=== PATIENT | female | born 1935 | race American Indian/Alaskan Native ===

== ENCOUNTER 2018-09-11 06:59 | Inpatient (IN) | payer MEDICARE ==
[2018-09-11] MEDS ORDERED: NACL 0.9% 1000 ML 1,000 ML IV ONE (08:09)
--- NOTE | 2018-09-11 08:47 | XRay Report ---
PROCEDURE: XR CHEST 1V AP TECHNIQUE: Chest radiograph single view. HISTORY: hypertension COMPARISONS: None . FINDINGS: Mild patient rotation. No mediastinal shift. Enlarged cardiac silhouette. Aortic wall calcification a nd tortuosity. No pneumothorax. Diffuse interstitial prominence. Cardiac silhouette obscures the left costophrenic angle. No right pleural effusion. IMPRESSION: Cardiac silhouette enlargement could be due to a pericardial effusion or chamber enlargement/cardiome john. Consider echocardiogram or CT is warranted for additional evaluation. This document is electronically signed by Scott Jaramillo MD., September 11 2018 08:44:42 AM ET
[2018-09-11 09:44] LABS: Eosinophils % (Auto) 0.9 % (0.0-4.3); Hematocrit 41.8 % (30.3-42.9); Hemoglobin 13.3 gm/dl (10.1-14.3); Lymphocytes # (Auto) 0.4 K/mm3 (1.2-5.4); Lymphocytes % (Auto) 7.9 % (13.4-35.0); Mean Corpuscular HGB Conc 32 % (30-34); Mean Corpuscular Volume 85 fl (79-97); Monocytes # (Auto) 0.6 K/mm3 (0.0-0.8); Monocytes % (Auto) 12.7 % (0.0-7.3); Platelet Count 192 K/mm3 (140-440); Red Blood Count 4.95 M/mm3 (3.65-5.03); Red Cell Distribution Width 23.4 % (13.2-15.2)
[2018-09-11 09:56] LABS: INR 2.06 (0.87-1.13); Partial Thromboplastin Time 31.5 Sec. (24.2-36.6)
[2018-09-11 10:04] LABS: Creatine Kinase MB 6.2 ng/mL (0.0-4.0)
[2018-09-11 10:29] LABS: Calcium 10.2 mg/dL (8.4-10.2)
[2018-09-11] MEDS ORDERED: LASIX IV ONE (11:19)
--- NOTE | 2018-09-11 11:19 | Emergency Department Report ---
ED General Adult HPI - General Chief complaint: Altered Mental Status Stated complaint: AMS Time Seen by Provider: 09/11/18 07:14 Source: EMS Mode of arrival: Stretcher Limitations: Altered Mental Status - History of Present Illness Initial comments: This is a 83-year-old female brought in by EMS call being for altered mental status. They state that they have run on this patient more than one time this week. They found her sitting in a doorway off her oxygen. She stated that she did not fall. She is oxygen dependent at home. She is apparently not been to this facility in the recent past as there is no [facility] record. Paramedics state that the family calls finding the patient on the floor without her oxygen and that she will not keep it on. The patient herself is tolerating her oxygen well now. She is not complaining of a specific problem. She does know her name and that she is in the hospital. Past medical history is somewhat vague. However medics state that the patient has not yet been diagnosed with dementia although suspected. She has a history of hypertension. -: Gradual, week(s) Severity scale (0 -10): 0 Associated Symptoms: denies other symptoms - Related Data Allergies Allergy/AdvReac Type Severity Reaction Status Date / Time No Known Allergies Allergy Unverified 09/11/18 08:40 ED Review of Systems ROS: Stated complaint: AMS Other details as noted in HPI Constitutional: denies: chills, fever Eyes: denies: eye pain, vision change ENT: denies: ear pain, throat pain Respiratory: denies: cough, shortness of breath, wheezing Cardiovascular: denies: chest pain, palpitations Endocrine: no symptoms reported Gastrointestinal: denies: abdominal pain, nausea, diarrhea Genitourinary: denies: urgency, dysuria, discharge Musculoskeletal: denies: back pain, joint swelling, arthralgia Skin: denies: rash, lesions Neurological: denies: headache, weakness, paresthesias Psychiatric: denies: anxiety, depression Hematological/Lymphatic: denies: easy bleeding, easy bruising ED Past Medical Hx - Past Medical History Hx Diabetes: Yes - Surgical History Additional Surgical History: Unknown - Social History Smoking Status: Unknown if ever smoked Substance Use Type: None ED Physical Exam - General Limitations: No Limitations General appearance: alert - Head Head exam: Present: atraumatic - Eye 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 Absent: tenderness, meningismus - Respiratory Respiratory exam: Present: normal lung sounds bilaterally. Absent: respiratory distress - Cardiovascular Cardiovascular Exam: Present: regular rate, normal rhythm. Absent: systolic murmur, diastolic murmur, rubs, gallop - GI/Abdominal GI/Abdominal exam: Present: soft, normal bowel sounds. Absent: distended, tenderness, guarding, rebound, rigid - Extremities Exam Extremities exam: Present: pedal edema, other (left hand edema, bilateral leg edema 2+) - Back Exam Back exam: Absent: CVA tenderness (R), CVA tenderness (L), muscle spasm, paraspinal tenderness, vertebral tenderness - Neurological Exam Neurological exam: Present: alert, motor sensory deficit. Absent: CN II-XII intact (no acute focal deficit) - Psychiatric Psychiatric exam: Present: normal affect, normal mood - Skin Skin exam: Present: warm, dry, intact, normal color. Absent: rash ED Course Vital Signs 09/11/18 09/11/18 09/11/18 07:31 07:41 07:43 Temperature 97.8 F Pulse Rate 86 95 H Respiratory 15 16 Rate Blood Pressure 129/90 O2 Sat by Pulse 96 Oximetry 09/11/18 09/11/18 09/11/18 07:57 08:00 08:30 Temperature Pulse Rate 86 96 H 102 H Respiratory 12 18 19 Rate Blood Pressure 134/96 119/98 O2 Sat by Pulse 100 95 93 Oximetry 09/11/18 09/11/18 09/11/18 09:00 09:30 10:00 Temperature Pulse Rate Respiratory 16 16 18 Rate Blood Pressure 119/98 119/95 119/95 O2 Sat by Pulse 94 93 90 Oximetry 09/11/18 10:30 Temperature Pulse Rate 97 H Respiratory 18 Rate Blood Pressure 99/75 O2 Sat by Pulse 96 Oximetry - Reevaluation(s) Reevaluation #1: Patient remained stable in the emergency department. Her chest x-ray suggested the possibility of pericardial effusion. I performed a bedside ultrasound. It does appear that the patient has a small to moderate pericardial effusion mostly posterior. I don't see any evidence of restricted wall motion. 09/11/18 12:23 Reevaluation #2: Patient will be given a small dose of Lasix. She remains adequately oxygenated and in no respiratory distress. Chest x-ray was consistent with congestive heart failure. Case management consult is called. Patient is admitted by Dr. Deleon to the hospitalist service. 09/11/18 12:24 ED Medical Decision Making - Lab Data Result diagrams: 09/11/18 08:58 09/11/18 08:58 Laboratory Results - last 24 hr 09/11/18 09/11/18 09/11/18 07:26 08:58 08:58 WBC 4.8 RBC 4.95 Hgb 13.3 Hct 41.8 MCV 85 MCH 27 L MCHC 32 RDW 23.4 H Plt Count 192 Lymph % (Auto) 7.9 L [place] % (Auto) 12.7 H Eos % (Auto) 0.9 Baso % (Auto) 1.0 Lymph # 0.4 L [place] # 0.6 Eos # 0.0 Baso # 0.0 Seg Neutrophils % 77.5 H Seg Neutrophils # 3.7 PT 24.6 H INR 2.06 H APTT 31.5 POC ABG pH POC ABG pCO2 POC ABG pO2 POC ABG HCO3 POC ABG Total CO2 POC ABG O2 Sat POC ABG Base Excess FiO2 Sodium Potassium Chloride Carbon Dioxide Anion Gap BUN Creatinine Estimated GFR BUN/Creatinine Ratio Glucose POC Glucose 135 H Lactic Acid Calcium Magnesium Ammonia Total Creatine Kinase CK-MB (CK-2) CK-MB (CK-2) Rel Index Troponin T NT-Pro-B Natriuret Pep Plasma/Serum Alcohol 09/11/18 09/11/18 09/11/18 08:58 08:58 08:58 WBC RBC Hgb Hct MCV MCH MCHC RDW Plt Count Lymph % (Auto) [place] % (Auto) Eos % (Auto) Baso % (Auto) Lymph # [place] # Eos # Baso # Seg Neutrophils % Seg Neutrophils # PT INR APTT POC ABG pH POC ABG pCO2 POC ABG pO2 POC ABG HCO3 POC ABG Total CO2 POC ABG O2 Sat POC ABG Base Excess FiO2 Sodium 142 Potassium 4.9 Chloride 103.4 Carbon Dioxide 23 Anion Gap 21 BUN 18 H Creatinine 1.2 Estimated GFR 52 BUN/Creatinine Ratio 15 Glucose 99 POC Glucose Lactic Acid 1.20 Calcium 10.2 Magnesium 2.40 H Ammonia 29.0 Total Creatine Kinase 99 CK-MB (CK-2) 6.2 H CK-MB (CK-2) Rel Index 6.2 H Troponin T 0.023 NT-Pro-B Natriuret Pep 21630 H Plasma/Serum Alcohol 09/11/18 09/11/18 08:58 09:11 WBC RBC Hgb Hct MCV MCH MCHC RDW Plt Count Lymph % (Auto) [place] % (Auto) Eos % (Auto) Baso % (Auto) Lymph # [place] # Eos # Baso # Seg Neutrophils % Seg Neutrophils # PT INR APTT POC ABG pH 7.384 POC ABG pCO2 44.0 POC ABG pO2 66 L POC ABG HCO3 26.3 POC ABG Total CO2 28 POC ABG O2 Sat 92 POC ABG Base Excess 1 FiO2 32 Sodium Potassium Chloride Carbon Dioxide Anion Gap BUN Creatinine Estimated GFR BUN/Creatinine Ratio Glucose POC Glucose Lactic Acid Calcium Magnesium Ammonia Total Creatine Kinase CK-MB (CK-2) CK-MB (CK-2) Rel Index Troponin T NT-Pro-B Natriuret Pep Plasma/Serum Alcohol < 0.01 - EKG Data -: EKG Interpreted by Nd EKG shows normal: sinus rhythm, axis, intervals, QRS complexes, ST-T waves Rate: normal (1 PVC nonspecific changes) - EKG Data Interpretation: nonspecific ST-T wave caitie - Radiology Data Radiology results: report reviewed Critical care attestation.: If time is entered above; I have spent that time in minutes in the direct care of this critically ill patient, excluding procedure time. ED Disposition Clinical Impression: Chronic obstructive pulmonary disease with hypoxia, Pericardial effusion, Acute encephalopathy, Coagulopathy Cardiomyopathy Qualifiers: Cardiomyopathy type: unspecified Qualified Code(s): I42.9 - Cardiomyopathy, unspecified Disposition: 09 OP ADMIT IP TO THIS HOSP Is pt being admited?: Yes Does the pt Need Aspirin: Yes Condition: Stable Instructions: Chronic Obstructive Pulmonary Disease (ED) Referrals: LEONILA ROSALES MD [Other] - 3-5 Days Time of Disposition: 12:33
[2018-09-11] MEDS ORDERED: BABY ASPIRIN PO ONE (12:33)
[2018-09-11 13:38] LABS: Bilirubin,Urine NEG (Negative); Blood,Urine NEG (Negative); Color,Urine Yellow (Yellow); Urobilinogen,Urine < 2.0 mg/dL (<2.0)
--- NOTE | 2018-09-11 14:06 | Cat Scan Report ---
PROCEDURE: CT HEAD/BRAIN WO CON TECHNIQUE: Computerized tomography of the head was performed without contrast material. CT DOSE LENGTH PRODUCT: 805.4 mGycm HISTORY: AMS COMPARISONS: None . FINDINGS: No acute air-fluid level visualized in the included air-filled sinuses. Bone windows demonstrate no acute fracture. There is ventricular and sulcal prominence compatible with age-appropriate global cerebrocortical atr ophy. The brain contains no mass, mass effect, hemorrhage, or acute infarct. There is no extra-axial intracranial bleed, brain bleed, or midline shift. Senescent calcifications in the basal ganglia. IMPRESSION: No acute CVA, intracranial bleed, or brain mass This document is electronically signed by Oscar Sarmiento MD., September 11 2018 02:04:03 PM ET
[2018-09-11 14:10] LABS: Amphetamine Screen,Urine PRESUMPTIVE NEGATIVE; Benzodiazepines Screen,Urine PRESUMPTIVE NEGATIVE; Cannabinoid Screen,Urine PRESUMPTIVE NEGATIVE; Cocaine Screen,Urine PRESUMPTIVE NEGATIVE; Methadone Screen,Urine PRESUMPTIVE NEGATIVE; Opiate Screen,Urine PRESUMPTIVE NEGATIVE
--- NOTE | 2018-09-11 21:00 | History and Physical Report ---
History of Present Illness Date of examination: 09/11/18 Date of admission: 09/11/18 13:03 Chief complaint: Altered sensorium 1 day History of present illness: 83-year-old female brought in by EMS for altered mental status. Patient with history of DM and Copd on Home O2 was found confused and not wearing her oxygen.Some SOB and wheezing present.No fever or chills.No previous admissions to this facility.No recent travel. Past Medical History Diabetes: Yes Surgical History Additional Surgical History: Unknown Social History smoked in the past. Substance Use Type: None Family history Htn Review of Systems ROS: Stated complaint: AMS Other details as noted in HPI Constitutional: denies: chills, fever Eyes: denies: eye pain, vision change ENT: denies: ear pain, throat pain Respiratory: denies: cough, shortness of breath, wheezing Cardiovascular: denies: chest pain, palpitations Endocrine: no symptoms reported Gastrointestinal: denies: abdominal pain, nausea, diarrhea Genitourinary: denies: urgency, dysuria, discharge Musculoskeletal: denies: back pain, joint swelling, arthralgia Skin: denies: rash, lesions Neurological: denies: headache, weakness, paresthesias Psychiatric: denies: anxiety, depression Hematological/Lymphatic: denies: easy bleeding, easy bruising Medications and Allergies Allergies Allergy/AdvReac Type Severity Reaction Status Date / Time No Known Allergies Allergy Verified 09/11/18 21:16 Home Medications Medication Instructions Recorded Confirmed Last Taken Type Acetaminophen TAB 650 mg PO Q6HR PRN 09/11/18 09/11/18 Unknown History Ativan 1.5 mg PO QHS 09/11/18 09/11/18 Unknown History Cardizem 30 mg PO Q8HR 09/11/18 09/11/18 Unknown History DUONEB *Not for PRN Use* 1 dose IH Q6HR 09/11/18 09/11/18 Unknown History Docusate Sodium [Colace CAP] 100 mg PO DAILY 09/11/18 09/11/18 Unknown History LORazepam [Ativan] 0.5 mg PO DAILY PRN 09/11/18 09/11/18 Unknown History Pepcid 20 mg PO BID 09/11/18 09/11/18 Unknown History Xarelto 15 mg PO DAILY 09/11/18 09/11/18 Unknown History oxyCODONE /ACETAMINOPHEN [Percocet 5 mg PO QID PRN 09/11/18 09/11/18 Unknown History 5/325 mg] Exam - Constitutional Vitals: Temp Pulse Resp BP Pulse Ox 98.5 F 105 H 18 109/72 90 09/11/18 20:36 09/11/18 20:36 09/11/18 20:36 09/11/18 20:36 09/11/18 20:36 General appearance: Present: no acute distress, mild distress, well-nourished - EENT Eyes: Present: PERRL ENT: hearing intact, clear oral mucosa - Neck Neck: Present: supple, normal ROM - Respiratory Respiratory effort: normal Respiratory: bilateral: diminished, rhonchi, wheezing - Cardiovascular Heart rate: 88 Rhythm: regular Heart Sounds: Present: S1 & S2. Absent: rub, click - Extremities Extremities: no ischemia, pulses intact, pulses symmetrical, No edema Peripheral Pulses: within normal limits - Abdominal General gastrointestinal: Present: soft, non-tender, non-distended, normal bowel sounds Female genitourinary: Present: normal - Rectal Rectal Exam: deferred - Integumentary Integumentary: Present: clear, warm, dry - Musculoskeletal Musculoskeletal: gait normal, strength equal bilaterally - Psychiatric Psychiatric: depressed, other (Lethargic) - Neurologic Neurologic: CNII-XII intact, moves all extremities - Allied Health Allied health notes reviewed: nursing, case management Results - Labs CBC & Chem 7: 09/11/18 08:58 09/11/18 08:58 Labs: Laboratory Last Values WBC 4.8 K/mm3 (4.5-11.0) 09/11/18 08:58 RBC 4.95 M/mm3 (3.65-5.03) 09/11/18 08:58 Hgb 13.3 gm/dl (10.1-14.3) 09/11/18 08:58 Hct 41.8 % (30.3-42.9) 09/11/18 08:58 MCV 85 fl (79-97) 09/11/18 08:58 MCH 27 pg (28-32) L 09/11/18 08:58 MCHC 32 % (30-34) 09/11/18 08:58 RDW 23.4 % (13.2-15.2) H 09/11/18 08:58 Plt Count 192 K/mm3 (140-440) 09/11/18 08:58 Lymph % (Auto) 7.9 % (13.4-35.0) L 09/11/18 08:58 Leslie % (Auto) 12.7 % (0.0-7.3) H 09/11/18 08:58 Eos % (Auto) 0.9 % (0.0-4.3) 09/11/18 08:58 Baso % (Auto) 1.0 % (0.0-1.8) 09/11/18 08:58 Lymph # 0.4 K/mm3 (1.2-5.4) L 09/11/18 08:58 Leslie # 0.6 K/mm3 (0.0-0.8) 09/11/18 08:58 Eos # 0.0 K/mm3 (0.0-0.4) 09/11/18 08:58 Baso # 0.0 K/mm3 (0.0-0.1) 09/11/18 08:58 Seg Neutrophils % 77.5 % (40.0-70.0) H 09/11/18 08:58 Seg Neutrophils # 3.7 K/mm3 (1.8-7.7) 09/11/18 08:58 PT 24.6 Sec. (12.2-14.9) H 09/11/18 08:58 INR 2.06 (0.87-1.13) H 09/11/18 08:58 APTT 31.5 Sec. (24.2-36.6) 09/11/18 08:58 POC ABG pH 7.384 (7.35-7.45) 09/11/18 09:11 POC ABG pCO2 44.0 (35-45) 09/11/18 09:11 POC ABG pO2 66 (80-105) L 09/11/18 09:11 POC ABG HCO3 26.3 (22-26 mml/L) 09/11/18 09:11 POC ABG Total CO2 28 (23-27mmol/L) 09/11/18 09:11 POC ABG O2 Sat 92 09/11/18 09:11 POC ABG Base Excess 1 ((-2) - (+3)mmol/L) 09/11/18 09:11 32 % 09/11/18 09:11 Sodium 142 mmol/L (137-145) 09/11/18 08:58 Potassium 4.9 mmol/L (3.6-5.0) 09/11/18 08:58 Chloride 103.4 mmol/L (98-107) 09/11/18 08:58 Carbon Dioxide 23 mmol/L (22-30) 09/11/18 08:58 21 mmol/L 09/11/18 08:58 BUN 18 mg/dL (7-17) H 09/11/18 08:58 1.2 mg/dL (0.7-1.2) 09/11/18 08:58 Estimated GFR 52 ml/min 09/11/18 08:58 15 % 09/11/18 08:58 Glucose 99 mg/dL (65-100) 09/11/18 08:58 POC Glucose 135 (70-105) H 09/11/18 07:26 Lactic Acid 1.20 mmol/L (0.7-2.0) 09/11/18 08:58 Calcium 10.2 mg/dL (8.4-10.2) 09/11/18 08:58 Magnesium 2.40 mg/dL (1.7-2.3) H 09/11/18 08:58 29.0 umol/L (25-60) 09/11/18 08:58 99 units/L (30-135) 09/11/18 08:58 CK-MB (CK-2) 6.2 ng/mL (0.0-4.0) H 09/11/18 08:58 CK-MB (CK-2) Rel Index 6.2 (0-4) H 09/11/18 08:58 0.023 ng/mL (0.00-0.029) 09/11/18 08:58 NT-Pro-B Natriuret Pep 84736 pg/mL (0-900) H 09/11/18 08:58 Yellow (Yellow) 09/11/18 13:21 Clear (Clear) 09/11/18 13:21 7.0 (5.0-7.0) 09/11/18 13:21 Ur Specific [place] 1.013 (1.003-1.030) 09/11/18 13:21 30 mg/dl mg/dL (Negative) 09/11/18 13:21 Neg mg/dL (Negative) 09/11/18 13:21 Neg mg/dL (Negative) 09/11/18 13:21 Neg (Negative) 09/11/18 13:21 Neg (Negative) 09/11/18 13:21 Neg (Negative) 09/11/18 13:21 < 2.0 mg/dL (<2.0) 09/11/18 13:21 Ur Leukocyte Esterase Neg (Negative) 09/11/18 13:21 1.0 /HPF (0.0-6.0) 09/11/18 13:21 1.0 /HPF (0.0-6.0) 09/11/18 13:21 U Epithel Cells (Auto) < 1.0 /HPF (0-13.0) 09/11/18 13:21 Presumptive negative 09/11/18 13:21 Presumptive negative 09/11/18 13:21 Ur Barbiturates Screen Presumptive negative 09/11/18 13:21 Ur Phencyclidine Scrn Presumptive negative 09/11/18 13:21 Ur Amphetamines Screen Presumptive negative 09/11/18 13:21 U Benzodiazepines Scrn Presumptive negative 09/11/18 13:21 Presumptive negative 09/11/18 13:21 U Marijuana (THC) Screen Presumptive negative 09/11/18 13:21 Disclamer 09/11/18 13:21 Plasma/Serum Alcohol < 0.01 % (0-0.07) 09/11/18 08:58 Short CBC 09/11/18 Range/Units 08:58 WBC 4.8 (4.5-11.0) K/mm3 Hgb 13.3 (10.1-14.3) gm/dl Hct 41.8 (30.3-42.9) % Plt Count 192 (140-440) K/mm3 BMP 09/11/18 08:58 Sodium 142 Potassium 4.9 Chloride 103.4 Carbon Dioxide 23 BUN 18 H Creatinine 1.2 Glucose 99 Calcium 10.2 Cardiac Enzymes 09/11/18 Range/Units 08:58 Total Creatine Kinase 99 (30-135) units/L CK-MB (CK-2) 6.2 H (0.0-4.0) ng/mL Troponin T 0.023 (0.00-0.029) ng/mL Urine 09/11/18 Range/Units 13:21 Urine Color Yellow (Yellow) Urine pH 7.0 (5.0-7.0) Ur Specific [place] 1.013 (1.003-1.030) Urine Protein 30 mg/dl (Negative) mg/dL Urine Glucose (UA) Neg (Negative) mg/dL - Imaging and Cardiology EKG: report reviewed (Sinus rhythm. PVC's RVHHR of 90) Chest x-ray: report reviewed CT Scan - head: report reviewed (NAF) Imaging and Cardiology: CXR IMPRESSION: Cardiac silhouette enlargement could be due to a pericardial effusion or chamber enlargement/cardiomegaly. Consider echocardiogram or CT is warranted for additional evaluation. Assessment and Plan Advance Directives: Yes (Full code) VTE prophylaxis?: Chemical Plan of care discussed with patient/family: Yes - Patient Problems (1) Acute encephalopathy Current Visit: Yes Status: Acute Plan to address problem: Sec to Hypoxia ABG normal CO2 levels (2) Acute exacerbation of CHF (congestive heart failure) Current Visit: Yes Status: Acute Qualifiers: Heart failure type: combined systolic and diastolic Qualified Code(s): I50.43 - Acute on chronic combined systolic (congestive) and diastolic (congestive) heart failure Plan to address problem: Elevated BNP IV Lasix Check ECHO for EF Cardiolgy consult (3) COPD with acute exacerbation Current Visit: Yes Status: Acute Plan to address problem: COnt Neb tx and Solumedrol and IV abx (4) T2DM (type 2 diabetes mellitus) Current Visit: Yes Status: Chronic Qualifiers: 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
[2018-09-11] MEDS ORDERED: PROVENTIL IH PRN (21:04)
[2018-09-11] MEDS ORDERED: ACETAMINOPHEN 650 MG PO PRN (21:13)
[2018-09-11] MEDS ORDERED: ATIVAN PO PRN (21:13)
[2018-09-11] MEDS ORDERED: PERCOCET 5/325 PO PRN (21:13)
[2018-09-11] MEDS ORDERED: XARELTO 15 MG PO SCH (21:15)
[2018-09-11] MEDS ORDERED: TYLENOL PO PRN (21:20)
[2018-09-11] MEDS ORDERED: XARELTO PO SCH (21:30)
[2018-09-11] MEDS ORDERED: LORAZEPAM PO SCH (22:00)
[2018-09-11] MEDS ORDERED: NON-FORMULARY (Pepcid 20 MG) PO SCH (22:00)
[2018-09-11] MEDS ORDERED: DILTIAZEM 30 MG PO SCH (22:00)
[2018-09-11] MEDS ORDERED: ZITHROMAX 500 MG in NACL 0.9% 250ML 250 ML IV SCH (22:00)
[2018-09-11] MEDS: CARDIZEM PO SCH (23:23)
[2018-09-11] MEDS: SOLU-Medrol IV SCH (23:23)
[2018-09-11] MEDS: PEPCID PO SCH (23:23)
[2018-09-11] MEDS: ATIVAN PO SCH (23:24)
[2018-09-12] MEDS ORDERED: [UNRECOGNIZED DRUG - REMARK] IH SCH
[2018-09-12] MEDS: ROCEPHIN/NS 2 GM/100 ML 2 GM/100 ML BAG IV SCH ×2 (00:28→22:49)
[2018-09-12] MEDS: COLACE PO SCH ×2 (00:28→10:14)
[2018-09-12] MEDS: CARDIZEM PO SCH ×3 (06:45→21:01)
[2018-09-12] MEDS: SOLU-Medrol IV SCH ×3 (06:46→21:01)
[2018-09-12] MEDS: DUONEB *Not for PRN Use IH SCH ×4 (08:03→19:42)
[2018-09-12] MEDS: HumaLOG SUB-Q SCH ×4 (09:10→22:55)
[2018-09-12] MEDS ORDERED: K-DUR PO SCH (10:00)
[2018-09-12] MEDS ORDERED: LASIX IV SCH (10:00)
[2018-09-12] MEDS: PEPCID PO SCH ×2 (10:15→21:02)
--- NOTE | 2018-09-12 10:31 | Progress Note ---
Assessment and Plan Assessment and plan: --Acute metabolic encephalopathy ; multi factorial , advanced age, Sec to Hypoxia Possible dementia --Acute exacerbation of congestive heart failure ; Elevated BNP, anti-failure medications, input output monitoring Low-sodium diet, water restriction, follow a cough for ejection fraction Cardiology consultation -- COPD with exacerbation Oxygen titrated to O2 sats more than 90% ,COnt Neb tx and Solumedrol and IV abx, evaluate for home oxygen at discharge --Type 2 diabetes mellitus; Accu-Chek sliding scale coverage and ADA diet insulin as needed Check A1c --Paroxysmal atrial fibrillation ; rate controlled Continue beta blockers ,On xarelto --DVT prophylaxis; On Xarelto and GI prophylaxis Protonix Follow cardiology evaluation and recommendations Possible discharge in 1-2 days if stable Plan of care reviewed with the patient and her nurse History Interval history: Patient seen and examined medical records reviewed Admitted with altered level of consciousness, acute on chronic systolic congestive heart failure Vital signs noted Hospitalist Physical - Constitutional Vitals: Temp Pulse Resp BP Pulse Ox 97.4 F L 91 H 18 123/79 87 09/12/18 08:28 09/12/18 08:28 09/12/18 08:10 09/12/18 08:28 09/12/18 08:28 General appearance: Present: no acute distress, mild distress, well-nourished - EENT Eyes: Present: PERRL, EOM intact - Neck Neck: Present: supple, normal ROM - Respiratory Respiratory effort: normal Respiratory: bilateral: diminished, rales, negative: rhonchi, wheezing - Cardiovascular Rhythm: regular Heart Sounds: Present: S1 & S2 - Extremities Extremities: no ischemia, No edema - Abdominal General gastrointestinal: soft, non-tender, non-distended, normal bowel sounds - Integumentary Integumentary: Present: clear, warm - Psychiatric Psychiatric: appropriate mood/affect, cooperative - Neurologic Neurologic: CNII-XII intact, moves all extremities Results - Labs CBC & Chem 7: 09/11/18 08:58 09/11/18 08:58 Labs: Laboratory Last Values WBC 4.8 K/mm3 (4.5-11.0) 09/11/18 08:58 RBC 4.95 M/mm3 (3.65-5.03) 09/11/18 08:58 Hgb 13.3 gm/dl (10.1-14.3) 09/11/18 08:58 Hct 41.8 % (30.3-42.9) 09/11/18 08:58 MCV 85 fl (79-97) 09/11/18 08:58 MCH 27 pg (28-32) L 09/11/18 08:58 MCHC 32 % (30-34) 09/11/18 08:58 RDW 23.4 % (13.2-15.2) H 09/11/18 08:58 Plt Count 192 K/mm3 (140-440) 09/11/18 08:58 Lymph % (Auto) 7.9 % (13.4-35.0) L 09/11/18 08:58 Merrick % (Auto) 12.7 % (0.0-7.3) H 09/11/18 08:58 Eos % (Auto) 0.9 % (0.0-4.3) 09/11/18 08:58 Baso % (Auto) 1.0 % (0.0-1.8) 09/11/18 08:58 Lymph # 0.4 K/mm3 (1.2-5.4) L 09/11/18 08:58 Merrick # 0.6 K/mm3 (0.0-0.8) 09/11/18 08:58 Eos # 0.0 K/mm3 (0.0-0.4) 09/11/18 08:58 Baso # 0.0 K/mm3 (0.0-0.1) 09/11/18 08:58 Seg Neutrophils % 77.5 % (40.0-70.0) H 09/11/18 08:58 Seg Neutrophils # 3.7 K/mm3 (1.8-7.7) 09/11/18 08:58 PT 24.6 Sec. (12.2-14.9) H 09/11/18 08:58 INR 2.06 (0.87-1.13) H 09/11/18 08:58 APTT 31.5 Sec. (24.2-36.6) 09/11/18 08:58 POC ABG pH 7.384 (7.35-7.45) 09/11/18 09:11 POC ABG pCO2 44.0 (35-45) 09/11/18 09:11 POC ABG pO2 66 (80-105) L 09/11/18 09:11 POC ABG HCO3 26.3 (22-26 mml/L) 09/11/18 09:11 POC ABG Total CO2 28 (23-27mmol/L) 09/11/18 09:11 POC ABG O2 Sat 92 09/11/18 09:11 POC ABG Base Excess 1 ((-2) - (+3)mmol/L) 09/11/18 09:11 32 % 09/11/18 09:11 Sodium 142 mmol/L (137-145) 09/11/18 08:58 Potassium 4.9 mmol/L (3.6-5.0) 09/11/18 08:58 Chloride 103.4 mmol/L (98-107) 09/11/18 08:58 Carbon Dioxide 23 mmol/L (22-30) 09/11/18 08:58 21 mmol/L 09/11/18 08:58 BUN 18 mg/dL (7-17) H 09/11/18 08:58 1.2 mg/dL (0.7-1.2) 09/11/18 08:58 Estimated GFR 52 ml/min 09/11/18 08:58 15 % 09/11/18 08:58 Glucose 99 mg/dL (65-100) 09/11/18 08:58 POC Glucose 138 (70-105) H 09/12/18 09:09 Lactic Acid 1.20 mmol/L (0.7-2.0) 09/11/18 08:58 Calcium 10.2 mg/dL (8.4-10.2) 09/11/18 08:58 Magnesium 2.40 mg/dL (1.7-2.3) H 09/11/18 08:58 29.0 umol/L (25-60) 09/11/18 08:58 99 units/L (30-135) 09/11/18 08:58 CK-MB (CK-2) 6.2 ng/mL (0.0-4.0) H 09/11/18 08:58 CK-MB (CK-2) Rel Index 6.2 (0-4) H 09/11/18 08:58 0.023 ng/mL (0.00-0.029) 09/11/18 08:58 NT-Pro-B Natriuret Pep 85628 pg/mL (0-900) H 09/11/18 08:58 Yellow (Yellow) 09/11/18 13:21 Clear (Clear) 09/11/18 13:21 7.0 (5.0-7.0) 09/11/18 13:21 Ur Specific Brinson 1.013 (1.003-1.030) 09/11/18 13:21 30 mg/dl mg/dL (Negative) 09/11/18 13:21 Neg mg/dL (Negative) 09/11/18 13:21 Neg mg/dL (Negative) 09/11/18 13:21 Neg (Negative) 09/11/18 13:21 Neg (Negative) 09/11/18 13:21 Neg (Negative) 09/11/18 13:21 < 2.0 mg/dL (<2.0) 09/11/18 13:21 Ur Leukocyte Esterase Neg (Negative) 09/11/18 13:21 1.0 /HPF (0.0-6.0) 09/11/18 13:21 1.0 /HPF (0.0-6.0) 09/11/18 13:21 U Epithel Cells (Auto) < 1.0 /HPF (0-13.0) 09/11/18 13:21 Presumptive negative 09/11/18 13:21 Presumptive negative 09/11/18 13:21 Ur Barbiturates Screen Presumptive negative 09/11/18 13:21 Ur Phencyclidine Scrn Presumptive negative 09/11/18 13:21 Ur Amphetamines Screen Presumptive negative 09/11/18 13:21 U Benzodiazepines Scrn Presumptive negative 09/11/18 13:21 Presumptive negative 09/11/18 13:21 U Marijuana (THC) Screen Presumptive negative 09/11/18 13:21 Disclamer 09/11/18 13:21 Plasma/Serum Alcohol < 0.01 % (0-0.07) 09/11/18 08:58 Active Medications - Current Medications Current Medications: Generic Name Dose Route Start Last Admin Trade Name Freq PRN Reason Stop Dose Admin Acetaminophen 650 mg 09/11/18 21:20 Tylenol PO Q6H PRN Pain, Mild (1-3) Albuterol 2.5 mg 09/11/18 21:04 Proventil IH Q4HRT PRN Shortness Of Breath Albuterol/Ipratropium 1 ampul 09/12/18 08:00 09/12/18 08:03 Duoneb *Not For Prn Use* IH 1 ampul QIDRT [facility] Administration Diltiazem HCl 30 mg 09/11/18 22:00 09/12/18 06:45 Cardizem PO 30 mg Q8HR [facility] Administration Docusate Sodium 100 mg 09/11/18 22:00 09/12/18 10:14 Colace PO 100 mg DAILY [facility] Administration Famotidine 10 mg 09/11/18 22:00 09/12/18 10:15 Pepcid PO 10 mg BID [facility] Administration Furosemide 40 mg 09/12/18 10:00 09/12/18 10:14 Lasix IV 40 mg QDAY [facility] Administration Ceftriaxone Sodium 2 gm in 100 mls @ 200 mls/hr 09/11/18 22:00 09/12/18 00:28 Rocephin/Ns 2 Gm/100 Ml IV Not Given Q24H [facility] Protocol Azithromycin 500 mg/ Sodium 250 mls @ 250 mls/hr 09/11/18 22:00 09/11/18 23:27 Chloride IV 250 mls/hr Q24H [facility] Administration Insulin Human Lispro 0 unit 09/12/18 07:30 09/12/18 09:10 Humalog SUB-Q Not Given ACHS [facility] Protocol Lorazepam 0.5 mg 09/11/18 21:13 Ativan PO DAILY PRN Anxiety Lorazepam 1.5 mg 09/11/18 22:00 09/11/18 23:24 Ativan PO 1.5 mg QHS [facility] Administration Methylprednisolone Sodium Succinate 60 mg 09/11/18 22:00 09/12/18 06:46 Solu-Medrol IV 60 mg Q8HR [facility] Administration Oxycodone/Acetaminophen 1 tab 09/11/18 21:13 Percocet 5/325 PO QID PRN Pain, Moderate (4-6) Potassium Chloride 20 meq 09/12/18 10:00 09/12/18 10:14 K-Dur PO 20 meq QDAY [facility] Administration Rivaroxaban 15 mg 09/11/18 21:30 09/11/18 23:33 Xarelto PO 15 mg QDAY@1700 [facility] Administration
--- NOTE | 2018-09-12 12:51 | Consultation ---
History of Present Illness Consult date: 09/12/18 Consult reason: congestive heart failure History of present illness: The patient is a frail 83-year-old woman brought to the emergency room with altered mental status. She was reported to have been found sitting on the floor in the doorway of her apartment. She is unable to provide a history, but it is stated in the records that she was on home oxygen. In the emergency room, her chest x-ray was very abnormal. There is a massive cardiomegaly with a spherical cardiac silhouette. There is a large opacity at the left hilum. There is moderate degree of interstitial edema. She was admitted with a diagnosis of heart failure, and currently appears comfortable on bedrest in her room, no shortness of breath and resolved lower extremity edema. Cardiology consultation is requested for further evaluation of her cardiac status. Due to the patient's inability to provide a history, and no prior records in this hospital, there is no knowledge of her prior cardiac history, workup or treatment. Laboratory exam here reveals an elevated INR of 2.06, but patient is not listed on warfarin but instead is listed as taking Xarelto. Indication for oral anticoagulation is also not available. EKG on this presentation is sinus rhythm with frequent PACs, incomplete right bundle branch block, no acute ST or T-wave changes. Past History Past Medical History: other (past medical history, workup and treatment not available) Medications and Allergies Allergies Allergy/AdvReac Type Severity Reaction Status Date / Time No Known Allergies Allergy Verified 09/11/18 21:16 Home Medications Medication Instructions Recorded Confirmed Last Taken Type Acetaminophen TAB 650 mg PO Q6HR PRN 09/11/18 09/11/18 Unknown History Ativan 1.5 mg PO QHS 09/11/18 09/11/18 Unknown History Cardizem 30 mg PO Q8HR 09/11/18 09/11/18 Unknown History DUONEB *Not for PRN Use* 1 dose IH Q6HR 09/11/18 09/11/18 Unknown History Docusate Sodium [Colace CAP] 100 mg PO DAILY 09/11/18 09/11/18 Unknown History LORazepam [Ativan] 0.5 mg PO DAILY PRN 09/11/18 09/11/18 Unknown History Pepcid 20 mg PO BID 09/11/18 09/11/18 Unknown History Xarelto 15 mg PO DAILY 09/11/18 09/11/18 Unknown History oxyCODONE /ACETAMINOPHEN [Percocet 5 mg PO QID PRN 09/11/18 09/11/18 Unknown History 5/325 mg] Active Meds: Active Medications Acetaminophen (Tylenol) 650 mg PO Q6H PRN PRN Reason: Pain, Mild (1-3) Albuterol (Proventil) 2.5 mg IH Q4HRT PRN PRN Reason: Shortness Of Breath Albuterol/Ipratropium (Duoneb *Not For Prn Use*) 1 ampul IH QIDRT [facility] Last Admin: 09/12/18 08:03 Dose: 1 ampul Documented by: Diltiazem HCl (Cardizem) 30 mg PO Q8HR [facility] Last Admin: 09/12/18 06:45 Dose: 30 mg Documented by: Docusate Sodium (Colace) 100 mg PO DAILY [facility] Last Admin: 09/12/18 10:14 Dose: 100 mg Documented by: Famotidine (Pepcid) 10 mg PO BID [facility] Last Admin: 09/12/18 10:15 Dose: 10 mg Documented by: Furosemide (Lasix) 40 mg IV QDAY [facility] Last Admin: 09/12/18 10:14 Dose: 40 mg Documented by: Ceftriaxone Sodium (Rocephin/Ns 2 Gm/100 Ml) 2 gm in 100 mls @ 200 mls/hr IV Q24H [facility]; Protocol Last Admin: 09/12/18 00:28 Dose: Not Given Documented by: Azithromycin 500 mg/ Sodium (Chloride) 250 mls @ 250 mls/hr IV Q24H [facility] Last Admin: 09/11/18 23:27 Dose: 250 mls/hr Documented by: Insulin Human Lispro (Humalog) 0 unit SUB-Q ACHS [facility]; Protocol Last Admin: 09/12/18 12:05 Dose: 2 unit Documented by: Lorazepam (Ativan) 0.5 mg PO DAILY PRN PRN Reason: Anxiety Lorazepam (Ativan) 1.5 mg PO QHS [facility] Last Admin: 09/11/18 23:24 Dose: 1.5 mg Documented by: Methylprednisolone Sodium Succinate (Solu-Medrol) 60 mg IV Q8HR [facility] Last Admin: 09/12/18 06:46 Dose: 60 mg Documented by: Oxycodone/Acetaminophen (Percocet 5/325) 1 tab PO QID PRN PRN Reason: Pain, Moderate (4-6) Potassium Chloride (K-Dur) 20 meq PO QDAY [facility] Last Admin: 09/12/18 10:14 Dose: 20 meq Documented by: Review of Systems ROS unobtainable: due to mental status Physical Examination Vital Signs Temp Pulse Resp BP Pulse Ox 97.8 F 86 15 129/90 96 09/11/18 07:31 09/11/18 07:31 09/11/18 07:31 09/11/18 07:31 09/11/18 07:31 General appearance: no acute distress HEENT: Positive: PERRL Neck: Positive: neck supple Cardiac: Positive: Reg Rate and Rhythm Lungs: Positive: Decreased Breath Sounds Neuro: Positive: Grossly Intact Abdomen: Positive: Soft Female genitourinary: deferred Skin: Positive: Clear Extremities: Present: edema (trace) Results 09/11/18 08:58 09/11/18 08:58 EKG interpretations - Telemetry EKG Rhythm: Sinus Rhythm Assessment and Plan - Patient Problems (1) Acute exacerbation of CHF (congestive heart failure) Current Visit: Yes Status: Acute Qualifiers: Heart failure type: combined systolic and diastolic Qualified Code(s): I50.43 - Acute on chronic combined systolic (congestive) and diastolic (congestive) heart failure Plan to address problem: Patient presents with altered mental status, findings in the hospital consistent with acute exacerbation of heart failure, with massive cardiomegaly and interstitial edema on chest x-ray. An echocardiogram is pending for left ventricular chamber size and systolic function. Continue diuretic therapy, and after limited agents as tolerated, and beta blockers when heart failure is compensated. Further cardiac workup would depend on clinical course. (2) Coagulopathy Current Visit: Yes Status: Acute Plan to address problem: Patient has a coagulopathy with INR of 2.06. She is not listed as taking warfarin, but instead is listed as taking Xarelto. We will hold the Xarelto for now, in the setting of vitamin K deficient coagulopathy, while we obtain records regarding indication for continued anticoagulation. We will order a liver function panel.
[2018-09-12 14:28] LABS: Albumin 3.3 g/dL (3.9-5); Bilirubin,Direct 0.2 mg/dL (0-0.2)
--- NOTE | 2018-09-12 17:44 | Event Note ---
Date: 09/12/18 Echocardiogram shows a large, mostly posterior pericardial effusion. In addition, there is evidence of severe corpulmonale, with dilated R heart chambers and severe pulmonary hypertension, estimated PA systolic pressures at >92mmHg approaching systemic levels. We will await results of chest CT (hilar opacity), to be followed by further recommendations on management of pericardial effusion.
--- NOTE | 2018-09-12 20:06 | Cat Scan Report ---
PROCEDURE: CT CHEST W CON TECHNIQUE: Computerized axial tomography of the chest was performed during the IV injection of iodin ated nonionic contrast. CT DOSE LENGTH PRODUCT: 1212.5 mGycm HISTORY: Left Hilar Opacity on CXR. BEST STUDY POSSIBLE. PT COULD NOT LAY FLAT ON BACK OR HOLD BREATH . COMPARISONS: Chest x-ray dated September 11, 2018 . FINDINGS: Visualization of fine detail in portions of the chest is somewhat limited by motion artifact. There is atelectasis in the left lower lobe. There is a small left pleural fluid collection. The heart is enlarged. There is a large pericardial effusion which measures approximately 4.3 cm in the maximal depth.. The Hounsfield units of the effusion are suggestive of blood products. There is the appearance of approximately 4 cm aneurysmal dilatation of the aortic arch with mural thr ombus in the aneurysm. There is a slight irregularity in the wall of the aneurysm that is contiguous with an abnormal pericardial collection. This is suggestive of a ruptured aneurysm of the aortic arch as etiology of the large pericardial fluid collection. There is reflux of IV contrast into the hepatic veins which can be seen with cardiac failure. The upper abdomen is notable for an IVC filter and gallstones within the gallbladder. The bony structures are notable for spondylitic change of the thoracic spine with dextrocurvature. There is the appearance of possible chest wall hematomas in the posterior chest wall on the right and left anterior chest wall/breast. IMPRESSION: 1. Cardiomegaly with large hemopericardium. 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 This finding was reported to the patient's nurse, JAMEE Paul, at 8:00 PM September 12, 2018 with recommendation for emergent consult with cardiothoracic surgery. 2. Atelectasis left lower lobe and small left pleural fluid collection. 3. IVC filter. 4. Possible chest wall hematomas right posterior chest wall and left anterior chest wall/breast. This document is electronically signed by Deepika Puente MD., September 12 2018 08:04:13 PM ET
--- NOTE | 2018-09-12 21:11 | Event Note ---
Date: 09/12/18 CTA Chest There is a large pericardial effusion which measures approximately 4.3 cm in the maximal depth.. The Hounsfield units of the effusion are suggestive of blood products. There is the appearance of approximately 4 cm aneurysmal dilatation of the aortic arch with mural thrombus in the aneurysm. There is a slight irregul arity in the wall of the aneurysm that is contiguous with an abnormal pericardial collection. This is suggestive of a ruptured aneurysm of the aortic arch as etiology of the large pericardial fluid collection. There is reflux of IV contrast into the hepatic veins which can be seen with cardiac failure. The upper abdomen is notable for an IVC filter and gallstones within the gallbladder. The bony structures are notable for spondylitic change of the thoracic spine with dextrocurvature. There is the appearance of possible chest wall hematomas in the posterior chest wall on the right and left anterior chest wall/breast.. IMPRESSION: 1. Cardiomegaly with large hemopericardium. 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 This finding was reported to the patient's nurse, JAMEE Paul, at 8:00 PM September 12, 2018 with recommendation for emergent consult with cardiothoracic surgery. 2. Atelectasis left lower lobe and small left pleural fluid collection. 3. IVC filter. 4. Possible chest wall hematomas right posterior chest wall and left anterior chest wall/breast. Hemopericardium and Likely rupture of Aortic aneurysm Patient stable Transfer to [facility] initiated Awaiting call from cardiothoracic surgery
[2018-09-12] MEDS: ATIVAN PO SCH (22:35)
[2018-09-12 23:00] VITALS: BP 125/61
--- NOTE | 2018-09-13 08:09 | Discharge Summary ---
Providers - Providers Date of Admission: 09/11/18 13:03 Date of discharge: 09/13/18 Attending physician: ELEANOR BURCH 09/11/18 12:17 Consult to Case Management [CONS] Routine Services Needed at Discharge: Home Health Services 09/11/18 17:55 Consult to Dietitian/Nutrition [CONS] Routine Physician Instructions: Reason For Exam: Reason for Consult: Poor oral intake 09/11/18 17:59 Occupational Therapy Evaluate and Treat [CONS] Routine Comment: Reason For Exam: weakness Physical Therapy Evaluation and Treat [CONS] Routine Comment: Reason For Exam: weakness 09/12/18 06:09 Consult to Physician [CONS] Routine Comment: called ans. serv. / jem Consulting Provider: SHELLY DYE Physician Instructions: Reason For Exam: CHF Hospitalization Reason for admission: Altered level of consciousness and worsening shortness of breath Condition: Critical Pertinent studies: CTA Chest There is a large pericardial effusion which measures approximately 4.3 cm in the maximal depth.. The Hounsfield units of the effusion are suggestive of blood products. There is the appearance of approximately 4 cm aneurysmal dilatation of the aortic arch with mural thrombus in the aneurysm. There is a slight irregularity in the wall of the aneurysm that is contiguous with an abnormal pericardial collection. This is suggestive of a ruptured aneurysm of the aortic arch as etiology of the large pericardial fluid collection. There is reflux of IV contrast into the hepatic veins which can be seen with cardiac failure. The upper abdomen is notable for an IVC filter and gallstones within the gallbladder. The bony structures are notable for spondylitic change of the thoracic spine with dextrocurvature. There is the appearance of possible chest wall hematomas in the posterior chest wall on the right and left anterior chest wall/breast.. IMPRESSION: 1. Cardiomegaly with large hemopericardium. 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 This finding was reported to the patient's nurse, JAMEE Paul, at 8:00 PM September 12, 2018 with recommendation for emergent consult with cardiothoracic surgery. 2. Atelectasis left lower lobe and small left pleural fluid collection. 3. IVC filter. 4. Possible chest wall hematomas right posterior chest wall and left anterior chest wall/breast. Hemopericardium and Likely rupture of Aortic aneurysm Patient stable Transfer to [facility] initiated Awaiting call from cardiothoracic surgery Hospital course: 83-year-old female brought in by EMS for altered mental status. Patient with history of DM and Copd on Home O2 was found confused and not wearing her oxygen.Some SOB and wheezing present.No fever or chills.No previous admissions to this facility.No recent travel. 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 As per medical records the findings of the CT chest was reported to the patient's Nurse RN Joy Paul at 8 PM on 09/12/2018 with recommendations for Emergent consult with cardiothoracic surgeon and transfer to [facility]. Cardiology recommended transfer the patient to [facility] for further ev aluation and management by cardiothoracic surgeon. Cardiothoracic surgery services are not available at [facility]. Patient was transferred by the covering hospitalist.. I was not present when the above events happened and when the patient was transferred to [facility]. 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 --Possible chest wall hematoma right posterior chest wall left anterior chest wall breast Patient was sent to [facility] for thoracic surgery evaluation and management --Acute exacerbation of congestive heart failure ; Elevated BNP, anti-failure medications, --Moderate malnutrition/hypoalbuminemia; nutrition supplements and supportive c are --Acute metabolic encephalopathy ; multi factorial , advanced age, Sec to Hypoxia Possible dementia -- COPD with exacerbation Oxygen titrated to O2 sats more than 90% ,COnt Neb tx and Solumedrol and IV abx, evaluate for home oxygen at discharge --Type 2 diabetes mellitus; Accu-Chek sliding scale coverage and ADA diet insulin as needed Check A1c --Paroxysmal atrial fibrillation ; rate controlled Xeralto held --DVT prophylaxis; SCD Patient was transferred to [facility] for cardiothoracic surgery evaluation and management Patient is critically guarded prognosis at the time of transfer I was not present when patient was transferred to [facility] Disposition: DC/TX-02 SHRT-TRM GEN HOSP IP Time spent for discharge: 35 min Core Measure Documentation - Palliative Care Palliative Care/ Comfort Measures: Not Applicable - Core Measures Any of the following diagnoses?: none Exam - Physical Exam Narrative exam: Patient is critically ill with guarded prognosis - Constitutional Vitals: Temp Pulse Resp BP Pulse Ox 97.6 F 100 H 18 125/61 93 09/12/18 20:19 09/13/18 00:39 09/12/18 19:57 09/12/18 22:29 09/13/18 00:39 Plan Additional Instructions: Patient was transferred to [facility] for further evaluation and management by cardiothoracic surgeon Follow up with: LEONILA ROSALES MD [Other] - 3-5 Days
== END 2018-09-13 00:45 | disposition short-term general hospital (02) | DRG 314 ==
LOC: ED 06:59 → 2B-ACE 13:03
PROVIDERS: ADMIT Internal Medicine; ATTEND Internal Medicine
PROC: 4A033R1 Measurement of Arterial Saturation, Peripheral, Percutaneous Approach (ICD-10-PCS; principal; 2018-09-11)
DX: I31.2 Hemopericardium, not elsewhere classified (principal); I50.43 Acute on chronic combined systolic (congestive) and diastolic (congestive) heart failure; I71.1 Thoracic aortic aneurysm, ruptured; G93.41 Metabolic encephalopathy; D68.9 Coagulation defect, unspecified; I31.3 Pericardial effusion (noninflammatory); J44.1 Chronic obstructive pulmonary disease with (acute) exacerbation; E44.0 Moderate protein-calorie malnutrition; J98.11 Atelectasis; I42.9 Cardiomyopathy, unspecified; I11.0 Hypertensive heart disease with heart failure; I48.0 Paroxysmal atrial fibrillation; Z68.30 Body mass index [BMI] 30.0-30.9, adult; Z99.81 Dependence on supplemental oxygen
CPT/HCPCS: 36415; 70450; 71045; 71260; 80048; 80076; 80307; 80320; 81001; 82140; 82550; 82553; 82803; 82962; 83735; 83880; 84484; 85025; 85610; 85730; 93005; 93010; 93306; 94640; 94760; G0378; G0480; J0456; J0696; J1815; J1940; J2930; J7030; J7050; Q9967